=== PATIENT | male | born 1985 | race Caucasian/White ===

== ENCOUNTER 2016-10-26 16:03 | Emergency (ER) | payer OTHER ==
[~2016-10-26] VITALS: Ht 165.1 cm; Wt 74.1 kg
[2016-10-26 16:06] VITALS: BP 115/72; PULSE 79; RESP 16; TEMP 98.2; O2SAT 98
[2016-10-26] MEDS ORDERED: ONDANSETRON HCL 4 MG/2 ML VIAL IVP ONE (17:15)
[2016-10-26] MEDS ORDERED: MORPHINE SULFATE 4 MG/ML INJ IV PUSH ONE (17:15)
[2016-10-26] MEDS ORDERED: SODIUM CHLOR 0.9% 250 ML INJ 250 ML IV ONE (17:15)
--- NOTE | 2016-10-26 17:19 | PD ---
HPI Chief Complaint: Back/ Neck Pain or Injury Time Seen by Provider: 17:18 Travel History International Travel<30 days: No Contact w/Intl Traveler<30days: No Traveled to known affect area: No History of Present Illness HPI Patient is a 31-year-old Syriac only speaking male presenting with left low back/hip pain. One hour prior to exam a 2 x 6 wooden beam fell approximately 8- 9 feet hitting him in the back. He has had pain since. He took Tylenol which seemed to help. The pain sometimes radiates to the left flank. Denies any pain in the midline. He denies any chest pain or shortness of breath. Denies any injury to the head or neck. Denies any bowel or bladder dysfunction, weakness or paresthesias in the lower extremities. He has been ambulatory. [facility] Social History Tobacco Use: No Allergies-Medications (Allergen,Severity, Reaction): Coded Allergies: No Known Allergies (Unverified , 10/26/16) Reported Meds & Prescriptions Reported Meds & Active Scripts Active No Active Prescriptions or Reported Medications Review of Systems Gastrointestinal: Positive: Abdominal Pain, No: Nausea, Vomiting, Changes in Bowel Habits Genitourinary: Positive: Flank Pain, No: Incontinence Musculoskeletal: Positive: Other (see the history of present illness) Neurologic: No: Weakness, Focal Abnormalities, Paresthesia, Sensory Disturbance Physical Exam Narrative GENERAL: Well-developed and well-nourished adult male in no acute distress. SKIN: Warm and dry. Good turgor without tenting. HEAD: Normocephalic and atraumatic. EYES: PERRL bilaterally, 5mm. EOMI bilaterally. No injection or icterus present. No proptosis. Lids without edema or erythema. ENT: Buccal mucosa pink and moist. Oropharynx free of erythema, tonsillar hypertrophy, masses, swelling, asymmetry and exudates. Uvula midline and airway patent. NECK: Supple, no midline tenderness, crepitus or step-offs. Trachea midline, no JVD. No cervical or facial lymphadenopathy. CARDIOVASCULAR: Regular rate and rhythm without murmurs, rubs, clicks or gallops. Radial and posterior tibial pulses 2+ bilaterally. No pedal edema. RESPIRATORY: Clear to auscultation bilaterally with symmetrical rise and fall, no distress or use of accessory muscles. GASTROINTESTINAL: Mild left flank tenderness without rebounding or guarding. No distention or discoloration. Normal bowel sounds all 4 quadrants. No masses or organomegaly present. MUSCULOSKELETAL: Patient has pain with palpation of the left iliac crest in the left low lumbar paraspinous musculature. Positive CVA tenderness. No posterior rib tenderness. No lumbar sacral or thoracic midline tenderness, crepitus or step-offs. There is no edema or discoloration of the iliac crest. No pain with pelvic rocking or pelvic instability. Patient freely moving all four extremities spontaneously. Extremities without clubbing, cyanosis, or edema. No obvious deformities. NEUROLOGIC: CN II-XII grossly intact. Awake and alert. Sensation intact L1-S2 bilaterally. Strength 5/5 in hip flexion, hip extension, knee flexion, knee extension, plantar flexion, dorsiflexion, and great toe flexion and extension bilaterally. Bilateral patellar and Achilles DTRs 2+. Downgoing Babins[place]is bilaterally. Normal speech. PSYCHIATRIC: Appropriate mood and affect; insight and judgment normal. Data Data Last Documented VS Vital Signs Date Time Temp Pulse Resp B/P Pulse Ox O2 Delivery O2 Flow Rate FiO2 10/26/16 20:45 69 14 126/63 98 Room Air 10/26/16 16:06 98.2 Orders Chest, Single Ap (10/26/16 17:15) Pelvis, Ap Only (Routine) (10/26/16 17:15) Complete Blood Count With Diff (10/26/16 17:15) Comprehensive Metabolic Panel (10/26/16 17:15) Prothrombin Time / Inr (Pt) (10/26/16 17:15) Act Partial Throm Time (Ptt) (10/26/16 17:15) Urinalysis - C+S If Indicated (10/26/16 17:15) Iv Access Insert/Monitor (10/26/16 17:15) Ecg Monitoring (10/26/16 17:15) Oximetry (10/26/16 17:15) NPO (10/26/16 17:15) Morphine Inj (Morphine Inj) (10/26/16 17:15) Ondansetron Inj (Zofran Inj) (10/26/16 17:15) Type And Screen (10/26/16 17:15) Sodium Chlor 0.9% 250 Ml Inj (Ns 250 Ml (10/26/16 17:15) Ct Abd/Pel W Iv Contrast(Rout) (10/26/16 17:19) Sodium Chlor 0.9% 1000 Ml Inj (Ns 1000 M (10/26/16 18:06) Iohexol 350 Inj (Omnipaque 350 Inj) (10/26/16 20:57) Mandatory Outpatient Referral (10/26/16 21:10) Labs Laboratory Tests Test 10/26/16 10/26/16 16:40 17:45 Urine Color YELLOW Urine Turbidity CLEAR Urine pH 6.5 Urine Specific [place] 1.025 Urine Protein NEG mg/dL Urine Glucose (UA) NEG mg/dL Urine Ketones NEG mg/dL Urine Occult Blood NEG Urine Nitrite NEG Urine Bilirubin NEG Urine Leukocyte Esterase NEG Urine WBC 0-2 /hpf Urine Squamous Epithelial 0-2 /hpf Cells Urine Mucus FEW /lpf Microscopic Urinalysis Comment CULT NOT INDICATED White Blood Count 9.4 TH/MM3 Red Blood Count 4.69 MIL/MM3 Hemoglobin 13.8 GM/DL Hematocrit 39.9 % Mean Corpuscular Volume 85.0 FL Mean Corpuscular Hemoglobin 29.3 PG Mean Corpuscular Hemoglobin 34.5 % Concent Red Cell Distribution Width 13.2 % Platelet Count 253 TH/MM3 Mean Platelet Volume 6.5 FL Neutrophils (%) (Auto) 67.5 % Lymphocytes (%) (Auto) 24.5 % Monocytes (%) (Auto) 5.7 % Eosinophils (%) (Auto) 1.7 % Basophils (%) (Auto) 0.6 % Neutrophils # (Auto) 6.3 TH/MM3 Lymphocytes # (Auto) 2.3 TH/MM3 Monocytes # (Auto) 0.5 TH/MM3 Eosinophils # (Auto) 0.2 TH/MM3 Basophils # (Auto) 0.1 TH/MM3 CBC Comment DIFF FINAL Differential Comment Prothrombin Time 10.7 SEC Prothromb Time International 1.0 RATIO Ratio Activated Partial 27.4 SEC Thromboplast Time Sodium Level 141 MEQ/L Potassium Level 3.7 MEQ/L Chloride Level 105 MEQ/L Carbon Dioxide Level 28.2 MEQ/L Anion Gap 8 MEQ/L Blood Urea Nitrogen 20 MG/DL Creatinine 1.00 MG/DL Estimat Glomerular Filtration 87 ML/MIN Rate Random Glucose 93 MG/DL Calcium Level 8.4 MG/DL Total Bilirubin 0.5 MG/DL Aspartate Amino Transf 23 U/L (AST/SGOT) Alanine Aminotransferase 26 U/L (ALT/SGPT) Alkaline Phosphatase 77 U/L Total Protein 7.4 GM/DL Albumin 3.8 GM/DL Blood Type A POSITIVE Antibody Screen NEGATIVE Blood Bank Comment MDM Medical Decision Making Medical Screen Exam Complete: Yes Emergency Medical Condition: Yes Interpretation(s) Laboratory Tests Test 10/26/16 10/26/16 16:40 17:45 Urine Color YELLOW (YELLW/STRAW) Urine Turbidity CLEAR (CLEAR) Urine pH 6.5 (5.0-8.5) Urine Specific [place] 1.025 (1.002-1.035) Urine Protein NEG mg/dL (NEG-TRACE) Urine Glucose (UA) NEG mg/dL (NEG) Urine Ketones NEG mg/dL (NEG) Urine Occult Blood NEG (NEG) Urine Nitrite NEG (NEG) Urine Bilirubin NEG (NEG) Urine Leukocyte Esterase NEG (NEG) Urine WBC 0-2 /hpf (0-5) Urine Squamous Epithelial 0-2 /hpf (0-5) Cells Urine Mucus FEW /lpf (OCC) Microscopic Urinalysis Comment CULT NOT INDICATED White Blood Count 9.4 TH/MM3 (4.0-11.0) Red Blood Count 4.69 MIL/MM3 (4.50-5.90) Hemoglobin 13.8 GM/DL (13.0-17.0) Hematocrit 39.9 % (39.0-51.0) Mean Corpuscular Volume 85.0 FL (80.0-100.0) Mean Corpuscular Hemoglobin 29.3 PG (27.0-34.0) Mean Corpuscular Hemoglobin 34.5 % Concent (32.0-36.0) Red Cell Distribution Width 13.2 % (11.6-17.2) Platelet Count 253 TH/MM3 (150-450) Mean Platelet Volume 6.5 FL (7.0-11.0) Neutrophils (%) (Auto) 67.5 % (16.0-70.0) Lymphocytes (%) (Auto) 24.5 % (9.0-44.0) Monocytes (%) (Auto) 5.7 % (0.0-8.0) Eosinophils (%) (Auto) 1.7 % (0.0-4.0) Basophils (%) (Auto) 0.6 % (0.0-2.0) Neutrophils # (Auto) 6.3 TH/MM3 (1.8-7.7) Lymphocytes # (Auto) 2.3 TH/MM3 (1.0-4.8) Monocytes # (Auto) 0.5 TH/MM3 (0-0.9) Eosinophils # (Auto) 0.2 TH/MM3 (0-0.4) Basophils # (Auto) 0.1 TH/MM3 (0-0.2) CBC Comment DIFF FINAL Differential Comment Prothrombin Time 10.7 SEC (9.8-11.6) Prothromb Time International 1.0 RATIO Ratio Activated Partial 27.4 SEC Thromboplast Time (24.3-30.1) Sodium Level 141 MEQ/L (136-145) Potassium Level 3.7 MEQ/L (3.5-5.1) Chloride Level 105 MEQ/L (98-107) Carbon Dioxide Level 28.2 MEQ/L (21.0-32.0) Anion Gap 8 MEQ/L (5-15) Blood Urea Nitrogen 20 MG/DL (7-18) Creatinine 1.00 MG/DL (0.60-1.30) Estimat Glomerular Filtration 87 ML/MIN (>89) Rate Random Glucose 93 MG/DL (74-106) Calcium Level 8.4 MG/DL (8.5-10.1) Total Bilirubin 0.5 MG/DL (0.2-1.0) Aspartate Amino Transf 23 U/L (15-37) (AST/SGOT) Alanine Aminotransferase 26 U/L (12-78) (ALT/SGPT) Alkaline Phosphatase 77 U/L (45-117) Total Protein 7.4 GM/DL (6.4-8.2) Albumin 3.8 GM/DL (3.4-5.0) Blood Type A POSITIVE Antibody Screen NEGATIVE Blood Bank Comment Last 24 hours Impressions Pelvis X-Ray 10/26/161714 Signed Impressions: Service Date/Time: Wednesday, October 26, 2016 18:38 - CONCLUSION: Unremarkable examination of the pelvis. Noble Millan MD Chest X-Ray 10/26/161714 Signed Impressions: Service Date/Time: Wednesday, October 26, 2016 18:33 - CONCLUSION: No acute disease. Noble Millan MD Differential Diagnosis Iliac crest fracture versus pelvic contusion versus abdominal wall contusion versus renal contusion versus intra-abdominal organ injury Narrative Course Patient is a 31-year-old Syriac only speaking male presenting with injury to the left iliac crest. [employer] per diem interpreter [place] [id number] was used for history and physical. Doesn't having some pain radiating into the abdomen and some CVA tenderness on the left. No lumbar midline tenderness. No "red flag "symptoms. He is neurovascularly intact. Vitals are stable. Patient is given morphine and Zofran and alert initially abdomen and AP chest as well as labs and CT abdomen and pelvis with contrast. Abdominal and chest x-ray unremarkable. CBC unremarkable. INR 1.0. Metabolic panel shows BUN 20, creatinine 1.00, calcium 8.4. UA unremarkable. CT scan does show fracturing of the left L3, L4, and L5 transverse processes with associated hemorrhage and the left lateral paraspinous region and along the left psoas muscle. I reviewed this with Dr. Mondragon and he states that as long as pain is recently controlled there would be no need for admission for this problem. The patient's vitals have remained stable. We discussed with the patient and he is feeling much improved with the morphine. We will provide him Percocet recommend frequent icing and rest until he sees spinal specialist in follow-up. A mandatory referral was issued and this was explained to the patient. No need for emergent bracing or neurosurgery consult per Dr. Mondragon.See discharge paperwork for further instructions. The plan was discussed with the patient who acknowledged their understanding and agreement. Reinforced the follow-up with primary care is critically important. Patient instructed on emergent conditions that should prompt return to ED. Diagnosis Primary Impression: Lumbar transverse process fracture Qualified Code: S32.008A - Lumbar transverse process fracture, closed, initial encounter Additional Impression: Abdominal wall hematoma Qualified Code: S30.1XXA - Abdominal wall hematoma, initial encounter Referrals: Sully Rogers MD Patient Instructions: General Instructions, Thoracolumbar Fracture (ED) Additional Instructions: Rest for 24 hours Avoid overexertion and no heavy lifting or bending until seen and cleared by spinal specialist Avoid maneuvers or positions that aggravate the pain Avoid twisting/bending or lifting heavy items Take medications as prescribed Your medications may cause drowsiness. Do not take with alcohol or sedatives. Do not operate a motor vehicle or heavy machinery while on medication. Apply ice for 15 minutes hourly as needed to painful areas Follow-up with neurosurgeon, Dr. Rogers, on Saturday Return to ED for any acute worsening of symptoms Med/Other Pt SpecificInfo: Prescription(s) given Scripts Oxycodone-Acetaminophen (Percocet)7.5-325 mg Tab1 Tab PO Q6H PRN (PAIN) #20 TAB Ref 0 Prov:Chang Cat MD 10/26/16 Disposition: 01 DISCHARGE HOME Condition: Stable Noble Schneider III Oct 26, 2016 17:19
[2016-10-26 17:45] VITALS: BP 119/63; PULSE 77; RESP 16; O2SAT 97
[2016-10-26] MEDS ORDERED: SODIUM CHLOR 0.9% 1000 ML INJ 1,000 ML IV SCH (18:06)
[2016-10-26 18:09] LABS: AUTOMATED NEUTROPHIL # 6.3 TH/MM3 (1.8-7.7); BASOPHIL # 0.1 TH/MM3 (0-0.2); BASOPHIL % 0.6 % (0.0-2.0); EOSINOPHIL # 0.2 TH/MM3 (0-0.4); EOSINOPHIL % 1.7 % (0.0-4.0); HEMATOCRIT 39.9 % (39.0-51.0); HEMO FLAGS DIFF FINAL; LYMPH % 24.5 % (9.0-44.0); LYMPHOCYTE # 2.3 TH/MM3 (1.0-4.8); MEAN CORPUSCULAR HEMOGLOBIN 29.3 PG (27.0-34.0); MEAN CORPUSCULAR HGB CONC 34.5 % (32.0-36.0); MONO % 5.7 % (0.0-8.0); NEUT % 67.5 % (16.0-70.0); PLATELET COUNT 253 TH/MM3 (150-450); RED BLOOD COUNT 4.69 MIL/MM3 (4.50-5.90); RED CELL DISTRIBUTION WIDTH 13.2 % (11.6-17.2); WHITE BLOOD COUNT 9.4 TH/MM3 (4.0-11.0)
[2016-10-26 18:18] LABS: BLOOD, URINE NEG (NEG); GLUCOSE,URINE NEG (NEG); KETONE, URINE NEG (NEG); NITRITE,URINE NEG (NEG); PH, URINE 6.5 (5.0-8.5)
[2016-10-26 18:29] LABS: CHLORIDE 105 MEQ/L (98-107); POTASSIUM 3.7 MEQ/L (3.5-5.1); SODIUM (NA) 141 MEQ/L (136-145)
[2016-10-26 18:32] LABS: URINE COLOR YELLOW (YELLW/STRAW)
[2016-10-26 18:33] LABS: ANION GAP 8 MEQ/L (5-15); BICARBONATE 28.2 MEQ/L (21.0-32.0); BLOOD UREA NITROGEN 20 MG/DL (7-18)
[2016-10-26 18:33] LABS: SQUAMOUS EPITHELIAL CELL URINE 0-2 /hpf (0-5); WBC, URINE 0-2 /hpf (0-5)
[2016-10-26 18:34] LABS: COMMENT (UR) CULT NOT INDICATED; CULTURE IF INDICATED CULT NOT INDICATED; MUCUS URINE FEW /lpf (OCC)
[2016-10-26 18:36] LABS: ALT (GPT) 26 U/L (12-78); AST (GOT) 23 U/L (15-37); GLOMERULAR FILTRATION RATE 87 ML/MIN (>89)
[2016-10-26 18:37] LABS: TOTAL BILIRUBIN ADULT 0.5 MG/DL (0.2-1.0)
[2016-10-26 18:39] LABS: ALKALINE PHOSPHATASE 77 U/L (45-117)
[2016-10-26 18:41] LABS: APTT (PATIENT) 27.4 SEC (24.3-30.1); PROTHROMBIN TIME - PATIENT 10.7 SEC (9.8-11.6)
--- NOTE | 2016-10-26 19:03 | RADHPO ---
EXAM DATE/TIME: 10/26/2016 18:33 [facility] COMPARISON: No previous studies available for comparison. INDICATIONS : Chest pain. MEDICAL HISTORY : None. SURGICAL HISTORY : None. ENCOUNTER: Initial ACUITY: 1 day PAIN SCORE: 7/10 LOCATION: Bilateral chest FINDINGS: A single view of the chest demonstrates the lungs to be symmetrically aerated without evidence of mas s, infiltrate or effusion. The cardiomediastinal contours are unremarkable. Osseous structures are intact. CONCLUSION: No acute disease. Noble Millan MD on October 26, 2016 at 19:02 Board Certified Radiologist. This report was verified electronically.
--- NOTE | 2016-10-26 19:08 | RADHPO ---
EXAM DATE/TIME: 10/26/2016 18:38 [facility] COMPARISON: No previous studies available for comparison. INDICATIONS : Pelvic pain. MEDICAL HISTORY : None. SURGICAL HISTORY : None. ENCOUNTER: Initial ACUITY: 1 day PAIN SCORE: 8/10 LOCATION: Bilateral pelvis FINDINGS: A single frontal view of the pelvis demonstrates no evidence of fracture. The bony pelvic ring is in tact. Bony mineralization is normal. The soft tissues are intact. CONCLUSION: Unremarkable examination of the pelvis. Noble Millan MD on October 26, 2016 at 19:06 Board Certified Radiologist. This report was verified electronically.
--- NOTE | 2016-10-26 20:21 | RADHPO ---
EXAM DATE/TIME: 10/26/2016 19:07 [facility] COMPARISON: No previous studies available for comparison. INDICATIONS : Left lower back pain following trauma IV CONTRAST: 90 cc Omnipaque 350 (iohexol) IV ORAL CONTRAST: No oral contrast ingested. RADIATION DOSE: 8.47 CTDIvol (mGy) MEDICAL HISTORY : None SURGICAL HISTORY : None. ENCOUNTER: Initial ACUITY: 1 day PAIN SCALE: 9/10 LOCATION: Left lower back. TECHNIQUE: Volumetric scanning of the abdomen and pelvis was performed. Using automated exposure control and adjustment of the mA and/or kV according to patient size, radiation dose was kept as low as reasonably achievable to obtain optimal diagnostic quality images. FINDINGS: There is fracturing of the left L3, L4 and L5 transverse processes. There is hematoma seen in the paraspinous region in these areas. There is also some hematoma and induration seen poste rior to the psoas muscle at the L4 and L5 levels. The increased density is seen between the psoas an d iliacus muscle at the pelvic inlet level. No other fracture is seen. The liver, spleen, pancreas, adrenal glands and kidneys appear normal. The bowel is unremarkable. Th e structures within the pelvis appear intact. CONCLUSION: Fracturing of the left L3, L4, and L5 transverse processes with associated hemorrhage seen in the lateral left paraspinous region and around the left psoas muscle. Noble Millan MD on October 26, 2016 at 19:54 Board Certified Radiologist. This report was verified electronically.
[2016-10-26 20:45] VITALS: BP 126/63; PULSE 69; RESP 14; O2SAT 98
[2016-10-26] MEDS ORDERED: IOHEXOL 350 MG/ML 10 ML VIAL (for RAD DIAG) IV ONE (20:57)
[2016-10-26] MEDS ORDERED: PERC7.5T13 PO (21:11)
== END 2016-10-26 21:32 | disposition home or self-care (01) ==
LOC: PHEFT 16:03
DX: S32.008A Other fracture of unspecified lumbar vertebra, initial encounter for closed fracture (principal); S30.1XXA Contusion of abdominal wall, initial encounter; W20.8XXA Other cause of strike by thrown, projected or falling object, initial encounter; Y99.8 Other external cause status
CPT/HCPCS: 71010; 72170; 74177; 80053; 81001; 85025; 85610; 85730; 86850; 86900; 86901; 96361; 96374; 96375; 99284; J2270; J2405; J7030; Q9967